=== PATIENT | male | born 1985 | race Caucasian/White ===

== ENCOUNTER 2023-03-07 09:18 | Outpatient (CLI) | payer OTHER, SELFPAY ==
[2023-03-07 14:03] LABS: Alanine Aminotransferase 40 U/L (6-50); Albumin Level 4.7 g/dL (3.5-5.1); Alkaline Phosphatase 80 U/L (38-126); Anion Gap 11 mmol/L (8-16); Aspartate Amino Transferase 57 U/L (17-59); Bilirubin,Total 0.6 mg/dL (0.2-1.3); Blood Urea Nitrogen 13 mg/dL (9-20); Calcium 9.8 mg/dL (8.4-10.2); Carbon Dioxide 28 mmol/L (22-30); Chloride 102 mmol/L (98-107); Cholesterol 199 mg/dL (0-200); Estimated Glomerular Filt Rate > 60; Glucose 79 mg/dL (65-110); HDL Direct 37 mg/dL; Potassium 4.4 mmol/L (3.4-5.0); Sodium 141 mmol/L (137-145); Triglycerides 152 mg/dL (<150)
[2023-03-07 14:21] LABS: LDL Cholesterol Direct 124 mg/dL
== END 2023-03-07 09:19 | disposition home or self-care (01) ==
LOC: ANHGOSHLAB 09:19
PROVIDERS: PCP Family Medicine; Visit Provider Family Medicine
DX: Z13.220 Encounter for screening for lipoid disorders (principal); I10 Essential (primary) hypertension
CPT/HCPCS: 36415; 80053; 80061

== ENCOUNTER 2023-09-18 08:39 | Emergency (ER) | payer OTHER, SELFPAY ==
--- NOTE | ~2023-09-18 | US_ITS ---
Bilateral shoulder ultrasound Ordering provider: Ladarius Shankar APRN History: . R/O deep space infection/abscess . Comparison: None. FINDINGS/impression: Edematous tissues are noted. Hypoechoic irregular fluid collection is seen in the skin with a tract to the skin surface most likel y a small abscess versus hematoma versus seroma. No deep abscess was demonstrated. Follow-up advised. Reviewed, dictated and finalized at location A.
[2023-09-18 08:46] VITALS: BP 136/98; PULSE 96; RESP 16; TEMP 36.6; O2SAT 100
--- NOTE | 2023-09-18 09:08 | ED.SKABFB ---
HPI - Skin/Abscess/Foreign Bdy General Chief complaint: Skin/Abscess/Foreign Body Stated complaint: abscess on back Time Seen by Provider: 09/18/23 09:07 Source: patient Mode of arrival: ambulatory Limitations: no limitations History of Present Illness HPI narrative: Daljit is a 38-year-old male patient presenting to the emergency room today with complaints of a abscess to his right upper back. He reports he went to [facility] urgent care last night and was prescribed doxycycline and mupirocin. States that the nurse practitioner at that time tried to sachi the abscess and did not get much drainage out. He reports he comes into the emergency room today as he has had some fever, chills, nausea, and vomiting. Has had His 2nd dose of doxycycline and threw it up this morning. He is also concerned that the redness has gotten worse. Related Data Home Medications Medication Instructions Recorded Confirmed doxycycline hyclate 100 mg capsule mg 09/18/23 mupirocin 2 % topical ointment topical 09/18/23 Allergies Allergy/AdvReac Type Severity Reaction Status Date / Time No Known Allergies Allergy Verified 09/18/23 08:40 Review of Systems Review of Systems: Pertinent positives per HPI. Patient denies any rash, headache, visual changes, dizziness, cough, runny nose, sore throat, shortness of breath, chest pain, palpitations, nausea, vomiting, diarrhea, constipation, abdominal pain, or any urinary issues. [facility] Past Medical History Medical History Body mass index [BMI]40.0-44.9, adult Chondromalacia patellae, left knee Morbid obesity with BMI of 40.0-44.9, adult Obstructive sleep apnea of adult Recurrent acute suppurative otitis media without spontaneous rupture of left tympanic membrane Surgical History Surgical History History of tonsillectomy Family History Family History Father Hypertension Social History Social History Smoking status: Never smoker Alcohol intake: never Substance use: never Substance use type: does not use Living arrangements: with family Occupation/Education: occupation Gender identity (if verbalized by the patient): Male Sexual Orientation (if Verbalized by the Patient): Straight or Heterosexual Agree to blood products: Yes Comments At the time of my signature, I reviewed and agree with the nursing past medical, surgical, social, and family history. There is no relevant family history pertinent to the patient complaint. Exam Narrative: General: Well-developed, obese, in no apparent distress Head: Normocephalic, atraumatic. Cardio: Regular rate and rhythm, s1 and s2 normal, no murmur appreciated. Resp: Clear to auscultation bilaterally, no rhonchi, rales, wheezing or rubs. Integumentary: [place], warm, and dry, abscess to the right upper back with redness and erythema going near the axilla, tender to palpation with mild fluctuance. Course Course Emergency Course: Portions of this record may have been created with voice recognition software. Vital Signs Vital signs: Vital Signs Temperature 36.6 C 09/18/23 08:46 Pulse Rate 96 09/18/23 08:46 Respiratory Rate 16 09/18/23 08:46 Blood Pressure 136/98 H 09/18/23 08:46 Pulse Oximetry 100 09/18/23 08:46 Oxygen Delivery Room Air 09/18/23 08:46 Temperature 36.6 C 09/18/23 12:50 Pulse Rate 86 09/18/23 12:50 Respiratory Rate 16 09/18/23 12:50 Blood Pressure 132/84 09/18/23 12:50 Pulse Oximetry 98 09/18/23 12:50 Oxygen Delivery Room Air 09/18/23 08:46 Vital signs reviewed Procedures Abscess I/D back: Date of Incision: 09/18/23 Side (if applicable): right Local Anesthetic: lidocaine 1% and with epi Amount of anesthesia u
[2023-09-18 09:54] LABS: Basophils Absolute Auto 0.1 K/mm3 (0.0-0.1); Basophils Percent Auto 0.2 % (0.2-1.2); Eosinophils Percent Auto 0.2 % (0-4.4); Hematocrit 43.6 % (42.0-52.0); Hemoglobin 14.6 g/dL (14.0-18.0); Immature Granulocyte Absolute 0.13 K/mm3 (0.00-0.031); Immature Granulocyte Percent A 0.6 % (0-0.5); Lymphocytes Absolute Auto 1.08 K/mm3 (0.9-3.2); Lymphocytes Percent Auto 5.4 % (18.3-44.2); Mean Corpuscular HGB Conc 33.5 g/dl (32-36); Mean Corpuscular Volume 92.6 fl (80-100); Monocytes Absolute Auto 2.2 K/mm3 (0.1-0.6); Monocytes Percent Auto 11.1 % (2.6-8.5); Neutrophils Absolute Auto 16.5 K/mm3 (1.3-6.7); Neutrophils Percent Auto 82.5 % (45.5-73.1); Platelet Count Result 230 k/mm3 (150-375); Red Blood Count 4.71 M/mm3 (4.6-6.20); Red Cell Distribution Width 13.2 % (11.5-14.5); White Blood Count 20.1 K/mm3 (4.5-10.0)
[2023-09-18 10:03] LABS: Alanine Aminotransferase 28 U/L (6-50); Albumin Level 4.4 g/dL (3.5-5.1); Alkaline Phosphatase 65 U/L (38-126); Anion Gap 10 mmol/L (4-12); Aspartate Amino Transferase 22 U/L (17-59); Bilirubin,Total 1.3 mg/dL (0.2-1.3); Blood Urea Nitrogen 11 mg/dL (9-20); Carbon Dioxide 23 mmol/L (22-30); Chloride 101 mmol/L (98-107); Estimated CRCL calculation 135 ml/min; Estimated Glomerular Filt Rate > 60; Glucose 100 mg/dL (65-110); Lactic Acid Reflex 0.6 mmol/L (0.7-2.0); Potassium 3.9 mmol/L (3.4-5.0); Sodium 134 mmol/L (137-145)
[2023-09-18 10:34] VITALS: BP 136/88; PULSE 88; RESP 16; TEMP 36.6; O2SAT 97
[2023-09-18] MEDS: CLINDAMYCIN 600 MG/D5W 50 ML 600 MG/50 ML PIGGYBACK 100 MG IVPB (10:35)
[2023-09-18] MEDS: ACETAMINOPHEN 500 MG TABLET 1000 MG PO (10:38)
[2023-09-18 12:00] VITALS: BP 134/86; PULSE 86; RESP 16; TEMP 36.6; O2SAT 98
[2023-09-18 12:50] VITALS: BP 132/84; PULSE 86; RESP 16; TEMP 36.6; O2SAT 98
--- NOTE | 2023-09-18 13:06 | PC.NURSE ---
ERP bedside I&D with idoform packing
[2023-09-18] MEDS: ONDANSETRON HCL ODT 4 MG TABLET PO (13:12)
== END 2023-09-18 13:24 | disposition home or self-care (01) ==
PROVIDERS: Emergency Provider Nurse Practitioner Family; PCP Family Medicine
DX: L02.212 Cutaneous abscess of back [any part, except buttock and flank] (principal); L03.312 Cellulitis of back [any part except buttock and flank]; E66.01 Morbid (severe) obesity due to excess calories; Z68.39 Body mass index [BMI] 39.0-39.9, adult; G47.33 Obstructive sleep apnea (adult) (pediatric)
CPT/HCPCS: 10061; 36415; 76604; 80053; 83605; 85025; 87040; 87070; 87081; 87181; 87205; 96365; 99284; A9270

== ENCOUNTER 2023-12-15 15:00 | Emergency (ER) | payer OTHER, SELFPAY ==
[2023-12-15] VITALS (7 sets, daily range): BP systolic 117–149; BP diastolic 77–96; PULSE 71–87; RESP 16–20; TEMP 36.7; O2SAT 97–100
--- NOTE | ~2023-12-15 | CT_ITS ---
EXAMINATION: CT brain wo con DATE: 12/15/2023 16:50 INDICATION: vertigo . TECHNIQUE: Computed tomography (CT) of the head was performed without intravenous contrast. The mA wa s adjusted according to patient size. Iterative reconstruction technique was employed. The dose-lengt h product was 605.33 mGy-cm. COMPARISON: None. FINDINGS: No acute intracranial hemorrhage or extra-axial fluid collection. No hydrocephalus, mass, or herniation. No acute ischemic infarct. Unremarkable dural venous sinus attenuation. No acute osseous abnormality. The aerated spaces are clear. IMPRESSION: No acute intracranial process. Reviewed, dictated and finalized at location K. ANALYSIS
--- NOTE | 2023-12-15 15:20 | ED.GENADULT ---
HPI - General Adult General Chief complaint: Dizziness Stated complaint: dizzy Time Seen by Provider: 12/15/23 15:03 History of Present Illness HPI narrative: 38-year-old male present to the emergency department for evaluation for acute onset of vertigo. Patient does have a prior history of vertigo. Patient has been told previously that he does have or left. Patient states he had 2 short episodes of vertigo this morning then while driving had a more prolonged episode of vertigo. Patient denies any recent coughs colds or fevers. Patient does have bilateral tympanostomy tubes. Patient denies any bending over prior to onset of symptoms. Patient denies any associated numbness or weakness. Patient does have sensation of movement, nausea and he is diaphoretic but denies any chest pain. Related Data Home Medications Medication Instructions Recorded Confirmed doxycycline hyclate 100 mg capsule mg 09/18/23 mupirocin 2 % topical ointment topical 09/18/23 Allergies Allergy/AdvReac Type Severity Reaction Status Date / Time No Known Allergies Allergy Verified 09/18/23 08:40 Review of Systems Review of Systems: All systems reviewed & are unremarkable except as noted in HPI and below PMFSH Past Medical History Medical History Body mass index [BMI]40.0-44.9, adult Chondromalacia patellae, left knee Morbid obesity with BMI of 40.0-44.9, adult Obstructive sleep apnea of adult Recurrent acute suppurative otitis media without spontaneous rupture of left tympanic membrane Surgical History Surgical History History of tonsillectomy Family History Family History Father Hypertension Social History Social History Smoking status: Never smoker Alcohol intake: never Substance use: never Substance use type: does not use Living arrangements: with family Occupation/Education: occupation Gender identity (if verbalized by the patient): Male Sexual Orientation (if Verbalized by the Patient): Straight or Heterosexual Agree to blood products: Yes Exam Narrative: APPEARANCE: uncomfortable appearing HEAD: normocephalic, atraumatic. EYES: PERRLA/EOMI, conjunctivae clear. NOSE: Normal no drainage EARS:TMS clear with good light reflex. THROAT: Pharynx clear, no exudate. NECK: Supple. No adenopathy, no masses. RESPIRATORY: Airway patent, respirations nonlabored. Clear to auscultation bilaterally, no rales, rhonchi, wheezing. CARDIOVASCULAR: Regular rate and rhythm without murmurs rubs or gallops. ABDOMINAL: Soft, nontender, nondistended, normal bowel sounds MUSCULOSKELETAL: Moves all extremities. Strength/ROM intact, No edema, No calf tenderness. NEURO: Alert. Cranial nerves II through XII intact. Grossly intact SKIN: Warm, dry. Normal Color Course Vital Signs Vital signs: Vital Signs Temperature 98.0 F 12/15/23 15:06 Pulse Rate 71 12/15/23 15:06 Respiratory Rate 20 12/15/23 15:06 Blood Pressure 149/96 H 12/15/23 15:06 Pulse Oximetry 97 12/15/23 15:06 Oxygen Delivery Room Air 12/15/23 15:06 Temperature 98.0 F 12/15/23 15:06 Pulse Rate 80 12/15/23 18:35 Respiratory Rate 16 12/15/23 18:35 Blood Pressure 120/80 12/15/23 18:35 Pulse Oximetry 99 12/15/23 18:35 Oxygen Delivery Room Air 12/15/23 15:[address] [facility] Narrative Medical decision making narrative: 38-year-old male presents emergency department for evaluation for dizziness symptoms with subsequent nausea and vomiting. Patient did feel improved with treatment of Valium and meclizine. Head CT was negative. At time of re-evaluation patient was improved. Patient and family updated the results of the workup and on the importance of close follow-up. All questions and concerns were addressed. Differential Diagnosis Differential Diagnosis: Vertigo, TIA, CVA, central vertigo Vital Signs Vital Signs: Vital Signs Temperature 98.0 F 12/15/23 15:06 Pulse Rate 71 12/15/23 15:06 Respiratory Rate 20 12/15/23 15:06 Blood Pressure 149/96 H 12/15/23 15:06 Pulse Oximetry 97 12/15/23 15:06 Oxygen Delivery Room Air 12/15/23 15:06 Temperature 98.0 F 12/15/23 15:06 Pulse Rate 80 12/15/23 18:35 Respiratory Rate 16 12/15/23 18:35 Blood Pressure 120/80 12/15/23 18:35 Pulse Oximetry 99 12/15/23 18:35 Oxygen Delivery Room Air 12/15/23 15:06 Lab Data Lab results reviewed: Yes I reviewed the patient's lab results. 12/15/23 15:30 12/15/23 15:30 Labs: Lab Results 12/15/23 12/15/23 Range/Units 15:30 15:30 WBC 10.3 H (4.5-10.0) K/mm3 RBC 5.28 (4.6-6.20) M/mm3 Hgb 16.2 (14.0-18.0) g/dL Hct 48.4 (42.0-52.0) % MCV 91.7 (80-100) fl MCH 30.7 (26-34) pg MCHC 33.5 (32-36) g/dl RDW 12.8 (11.5-14.5) % Plt Count 323 (150-375) k/mm3 MPV 11.0 H (7.4-10.4) fl Immature Gran % (Auto) 0.3 (0-0.5) % Neut % (Auto) 43.8 L (45.5-73.1) % Lymph % (Auto) 43.8 (18.3-44.2) % Dare % (Auto) 9.6 H (2.6-8.5) % Eos % (Auto) 1.8 (0-4.4) % Baso % (Auto) 0.7 (0.2-1.2) % Lymph # (Auto) 4.52 H (0.9-3.2) K/mm3 Dare # (Auto) 1.0 H (0.1-0.6) K/mm3 Eos # (Auto) 0.2 (0-0.3) K/mm3 Baso # (Auto) 0.1 (0.0-0.1) K/mm3 Abs Immat Gran (auto) 0.03 (0.00-0.031) K/mm3 Absolute Neuts (auto) 4.5 (1.3-6.7) K/mm3 Absolute Nucleated RBC 0.000 (0.0-0.012) K/mm3 Nucleated RBC % 0.0 (0.0-0.2) % Sodium 140 (137-145) mmol/L Potassium 3.6 (3.4-5.0) mmol/L Chloride 105 (98-107) mmol/L Carbon Dioxide 23 (22-30) mmol/L Anion Gap 12 (4-12) mmol/L BUN 15 (9-20) mg/dL Creatinine 0.80 (0.7-1.3) mg/dL Estim Creat Clear Calc 152 ml/min Estimated GFR > 60 (59 - ) Glucose 125 H (65-110) mg/dL Calcium 9.5 (8.4-10.2) mg/dL Magnesium 2.2 Cancelled (1.6-2.3) mg/dL Total Bilirubin 0.5 (0.2-1.3) mg/dL AST 33 (17-59) U/L ALT 39 (6-50) U/L Alkaline Phosphatase 49 (38-126) U/L Total Protein 8.0 (6.3-8.2) g/dL Albumin 4.8 (3.5-5.1) g/dL TSH (Reflex) 3.160 (0.465-4.68) uIU/mL Imaging Data Radiologist's impression: Impressions Head CT 12/15/23 16:54 IMPRESSION: No acute intracranial process. Discharge Plan Discharge Clinical Impression: Vertigo Patient Disposition: Home, Self-Care Condition: Stable Instructions: Antibiotic Form, Dizziness (ED) Additional Instructions: Meclizine as needed for vertigo control. Valium as needed for additional her vertigo control. Have close follow-up with primary care physician. If you have any worsening symptoms then please call or return to the emergency department. Prescriptions: New meclizine 25 mg tablet 25 mg PO BID PRN (Reason: dizziness) Qty: 20 0RF diazepam [Valium] 2 mg tablet 2 mg PO BID PRN (Reason: dizziness or vertigo) Qty: 14 0RF No Action doxycycline hyclate 100 mg capsule mupirocin 2 % ointment TOPICAL clindamycin HCl 300 mg capsule 300 mg PO BID 10 Days Qty: 20 0RF cephalexin 500 mg tablet 500 mg PO Q8H 10 Days Qty: 30 0RF amlodipine 5 mg tablet 5 mg PO DAILY Qty: 90 1RF olmesartan 20 mg tablet 20 mg PO DAILY Qty: 90 1RF dextroamphetamine-amphetamine [Adderall XR] 30 mg capsule,extended release 24hr 30 mg PO DAILY Qty: 30 0RF dextroamphetamine-amphetamine [Adderall] 30 mg tablet 30 mg PO DAILY Qty: 30 0RF Rx Instructions: TAKE IN AFTERNOON Follow-up/Referrals: Gregg Ramos, [Primary Care Provider] -
[2023-12-15] MEDS: SODIUM CHLORIDE 0.9% IV 1,000 ML 999 ML IV CONT (15:33)
[2023-12-15] MEDS: ONDANSETRON INJ 4 MG/2 ML VIAL IV PUSH (15:33)
[2023-12-15] MEDS: diazePAM INJ (*CRX) 10 MG/2 ML SYRINGE 5 MG IV PUSH (15:34)
[2023-12-15 15:35] LABS: Basophils Absolute Auto 0.1 K/mm3 (0.0-0.1); Basophils Percent Auto 0.7 % (0.2-1.2); Eosinophils Absolute Auto 0.2 K/mm3 (0-0.3); Eosinophils Percent Auto 1.8 % (0-4.4); Hematocrit 48.4 % (42.0-52.0); Hemoglobin 16.2 g/dL (14.0-18.0); Immature Granulocyte Absolute 0.03 K/mm3 (0.00-0.031); Immature Granulocyte Percent A 0.3 % (0-0.5); Lymphocytes Absolute Auto 4.52 K/mm3 (0.9-3.2); Lymphocytes Percent Auto 43.8 % (18.3-44.2); Mean Corpuscular HGB Conc 33.5 g/dl (32-36); Mean Corpuscular Hemoglobin 30.7 pg (26-34); Mean Corpuscular Volume 91.7 fl (80-100); Monocytes Percent Auto 9.6 % (2.6-8.5); Neutrophils Absolute Auto 4.5 K/mm3 (1.3-6.7); Neutrophils Percent Auto 43.8 % (45.5-73.1); Platelet Count Result 323 k/mm3 (150-375); Red Blood Count 5.28 M/mm3 (4.6-6.20); Red Cell Distribution Width 12.8 % (11.5-14.5); White Blood Count 10.3 K/mm3 (4.5-10.0)
[2023-12-15] MEDS: MECLIZINE HCL 25 MG TABLET PO ×2 (15:36→17:36)
[2023-12-15 16:00] LABS: Alanine Aminotransferase 39 U/L (6-50); Albumin Level 4.8 g/dL (3.5-5.1); Alkaline Phosphatase 49 U/L (38-126); Anion Gap 12 mmol/L (4-12); Aspartate Amino Transferase 33 U/L (17-59); Bilirubin,Total 0.5 mg/dL (0.2-1.3); Blood Urea Nitrogen 15 mg/dL (9-20); Calcium 9.5 mg/dL (8.4-10.2); Carbon Dioxide 23 mmol/L (22-30); Chloride 105 mmol/L (98-107); Estimated CRCL calculation 152 ml/min; Estimated Glomerular Filt Rate > 60; Glucose 125 mg/dL (65-110); Magnesium 2.2 mg/dL (1.6-2.3); Potassium 3.6 mmol/L (3.4-5.0); Sodium 140 mmol/L (137-145)
[2023-12-15] MEDS: ONDANSETRON HCL ODT 4 MG TABLET (18:42)
== END 2023-12-15 18:45 | disposition home or self-care (01) ==
PROVIDERS: Emergency Provider Emergency Medicine; PCP Family Medicine
DX: R42 Dizziness and giddiness (principal); E66.01 Morbid (severe) obesity due to excess calories; Z68.41 Body mass index [BMI] 40.0-44.9, adult; G47.33 Obstructive sleep apnea (adult) (pediatric)
CPT/HCPCS: 36415; 70450; 80053; 83735; 84443; 85025; 96361; 96374; 96375; 96376; 99284; A9270; J2405; J3360; J7030

== ENCOUNTER 2023-12-20 08:08 | Outpatient (CLI) | payer OTHER, SELFPAY | END 2023-12-21 13:43 | disposition home or self-care (01) | PROVIDERS: PCP Family Medicine; Visit Provider Family Medicine | DX: G47.33 Obstructive sleep apnea (adult) (pediatric) (principal) | CPT/HCPCS: 95800 ==

== ENCOUNTER 2024-02-08 15:05 | Outpatient (CLI) | payer OTHER, SELFPAY ==
--- NOTE | ~2024-02-08 | XR_ITS ---
XR cervical spine 4-5V Ordering provider: Gregg Ramos DO History: . M54.2 - Cervicalgia . Comparison: None. FINDINGS: VERTEBRAL BODIES: Normal height and alignment. No visible fracture or subluxation. The dens is intact . DISK SPACES: Well maintained. Intervertebral foramen are normal. PARASPINOUS SOFT TISSUES: No prevertebral soft tissue swelling. IMPRESSION: No acute osseous abnormality cervical spine. Reviewed, dictated and finalized at location A. F SORTER
--- NOTE | ~2024-02-08 | XR_ITS ---
XR shoulder RT min 2V Ordering provider: Gregg Ramos DO History: . M25.511 - Pain in right shoulder . Comparison: None. FINDINGS: BONES: No acute fracture or dislocation. JOINT SPACES: The acromioclavicular joint is normal. The glenohumeral joint is normal. SOFT TISSUES: Normal. IMPRESSION: No acute osseous abnormality right shoulder. Reviewed, dictated and finalized at location A. CONSULTANT
== END 2024-02-08 15:06 | disposition home or self-care (01) ==
PROVIDERS: PCP Family Medicine; Visit Provider Family Medicine
DX: M54.2 Cervicalgia (principal); M25.511 Pain in right shoulder
CPT/HCPCS: 72050; 73030

== ENCOUNTER 2024-02-13 07:59 | Outpatient (CLI) | payer OTHER, SELFPAY ==
--- OUTSIDE RECORDS SUMMARY | 2024-02-20 10:03 | XMS_ITS | Referral Summary ---
Author Organization [facility] [address] Address [address] [place] [id number] Care Team Providers Care Carpenter Supervisor [employer]en [employer] Name Role Phone Gregg Ramos DO Primary Care Provider [phone] Allergies No known active allergies Medications dextroamphetami ne-amphetamine XR (ADDERALL XR) 30 mg 24 hr capsule Take 1 capsule (30 mg total) by mouth daily 09/17/2023 Active amLODIPine (NORVASC) 5 mg tablet Take 1 tablet (5 mg total) by mouth daily 03/26/2023 Active losartan-hydroC HLOROthiazide (HYZAAR) 50-12.5 mg per tablet Take 1 tablet by mouth daily 09/22/2021 Active Active Problems No known active problems Social History Tobacco Use Types Packs/Day Years Used Date Smoking Tobacco: Never Assessed Sex and Gender Information Value Date Recorded Sex Assigned at Not on file Legal Sex Male 5:45 PM CDT Gender Identity Not on file Sexual Orientation Not on file Last Filed Vital Signs Vital Sign Reading Time Taken Comments Blood Pressure 118/72 09/17/2023 6:24 PM CDT Pulse 112 09/17/2023 6:24 PM CDT Temperature 37.4 ??C (99.4 ??F) 09/17/2023 6:24 PM CD T Respiratory Rate 22 09/17/2023 6:24 PM CDT Oxygen Saturation 98% 09/17/2023 6:24 PM CDT Inhaled Oxygen Concentration - - Weight 129.3 kg (285 lb) 09/17/2023 6:24 PM CDT Height 180.3 cm (5' 11 ) 09/17/2023 6:24 PM CDT Body Mass Index 39.75 09/17/2023 6:24 PM CDT Plan of Treatment Not on file Additional Health Concerns Infection Onset Date Last Indicated MRSA Comment:Back abscess 09/17/2023 09/17/2023 09/17/2023 Insurance [facility] [employer] Care Teams Carpenter Supervisor [employer]en [employer] Relationship Specialty Start Date End Date Gregg Ramos DO [address] [place] [id number] PCP - General Family Medicine 09/17/23
--- OUTSIDE RECORDS SUMMARY | 2024-02-20 10:03 | XMS_ITS | Encounter Summary ---
Author Organization [facility] Healthcare Address [address] [place] [id number] Care Team Providers Care Occupational Therapy Teacher Name Role Phone Gregg Ramos DO Primary Care Provider [phone] Encounter Details Date Type Department Care Team (Latest Contact Info) Description 09/17/2023 6:52 PM CDT - 09/17/2023 11:59 PM CDT Hospital Encounter [address] [id number] Abscess Discharge Disposition: Discharge to home or self care Social History Tobacco Use Types Packs/Day Years Used Date Smoking Tobacco: Never Assessed Sex and Gender Information Value Date Recorded Sex Assigned at Not on file Legal Sex Male 5:45 PM CDT Gender Identity Not on file Sexual Orientation Not on file documented as of this encounter Medications at Time of Discharge amLODIPine (NORVASC) 5 mg tablet Take 1 tablet (5 mg total) by mouth daily 03/26/2023 dextroamphetamin e-amphetamine XR (ADDERALL XR) 30 mg 24 hr capsule Take 1 capsule (30 mg total) by mouth daily 09/17/2023 losartan-hydroCH LOROthiazide (HYZAAR) 50-12.5 mg per tablet Take 1 tablet by mouth daily 09/22/2021 doxycycline (VIBRAMYCIN) 100 mg capsuleIndicatio ns:Abscess Take 1 tablet/capsule (100 mg total) by mouth 2 (two) times a day for 7 days 14 tablet/capsule 09/17/2023 4 mupirocin (BACTROBAN) 2 % ointmentIndicati ons:Abscess Apply topically 3 (three) times a day for 10 days 22 g 09/17/2023 4 documented as of this encounter Discharge Disposition Disposition Code Departure Means Destination Discharge to home or self care documented in this encounter Plan of Treatment Not on file documented as of this encounter Procedures Procedure Name Priority Date/Time Associated Diagnosis Comments AEROBIC AND ANAEROBIC CULTURE AND GRAM STAIN Routine 09/17/2023 6:52 PM CDT Abscess documented in this encounter Results * (ABNORMAL) Aerobic and anaerobic culture and gram stain Abscess Back, lower (09/17/2023 6:52 PM CDT) Direct Specimen Exam Stain: Moderate polymorphonuclear leukocytes seen. Few Gram Positive Cocci Comment:Testing performed by : , [address] [place]., [address] Report Final Report: Few Staphylococcus aureus Methicillin resistant (MRSA) by penicillin binding protein 2a (PBP2a) testing. (.) MERT Comment:Testing performed by : , [address] [place]., [address] Organism STAPHYLOCOCCUS AUREUS MERT Abscess (Back, lower) 09/17/2023 6:52 PM CDT 09/18/2023 4:39 AM CDT Narrative MERT - 09/25/2023 1:57 PM CDT Specimen received on an ESwab. Testing performed by Microbiology Laboratory ([phone]) Specimens submitted from normally sterile body sites will have all bacterial morphotypes identified. Specimens that contain grossly mixed shivani and/or are from body sites that are not normally sterile will be examined for Staphylococcus aureus, Pseudomonas aeruginosa, beta-hemolytic strep, vancomycin-resistant Enterococcus, Bacteroides, Parabacteroides, Clostridium perfringens and fungus. If any of these are isolated, the organism will be reported. Current interpretive data was last revised on 2019. Organism Antibiotic Method Susceptibility Staphylococcus aureus Vancomycin INTERPRETATION Susceptible Staphylococcus aureus Ceftaroline INTERPRETATION Susceptible Staphylococcus aureus Trimethoprim with Sulfamethoxazole INTERPRETATION Susceptible Staphylococcus aureus Linezolid INTERPRETATION Susceptible Staphylococcus aureus Doxycycline INTERPRETATION Susceptible Staphylococcus aureus Clindamycin INTERPRETATION Susceptible Staphylococcus aureus Erythromycin INTERPRETATION Resistant Staphylococcus aureus Oxacillin INTERPRETATION Resistant Staphylococcus aureus Cefazolin INTERPRETATION Resistant Staphylococcus aureus Ceftriaxone INTERPRETATION Resistant us Murtaza Lizama NP LAB MICROBIOLOGY - GENERAL ORDShana RODRIGUEZ Final Result [facility] [id number] [address] Department [place] [address] documented in this encounter Visit Diagnoses Diagnosis Abscess Cellulitis and abscess of unspecified site documented in this encounter Care Teams Occupational Therapy Teacher Relationship Specialty Start Date End Date Gregg Ramos DO [address] [facility] [place] [address] [phone] PCP - General Family Medicine 09/17/23 documented as of this encounter
--- OUTSIDE RECORDS SUMMARY | 2024-02-20 10:03 | XMS_ITS | Encounter Summary ---
Author Organization [facility] Healthcare Address [address] [place] [id number] Care Team Providers Care [employer] Name Role Phone Gregg Ramos DO Primary Care Provider [phone] Reason for Referral * Procedure (Routine) - Pending Review Specialty Diagnoses / Procedures [facility] Referred To Contact Diagnoses Abscess Procedures Incision and Drainage Murtaza Lizama NP [address] [address] Phone: tel: fax: [facility] Medical Group Referral ID Status Reason Start Date Expiration Date V isits Requested Visits Authorized [id number] Pending Review 09/17/2023 10/16/2024 1 1 Reason for Visit * Reason Comments Abscess Abscess on back righ t shoulder blade area Encounter Details Date Type Department Care Team (Late st Contact Info) Description 09/17/2023 7:00 PM CDT Office Visit [facility] Medical [facility] [address] [id number] Murtaza Lizama NP [address] [place] [address] Abscess (Primary Dx); Tachycardia Social History Tobacco Use Types Packs/Day Years Used Date Smoking Tobacco: Never Assessed Sex and Gender Information Value Date Recorded Sex Assigned at Not on file Legal Sex Male 5:45 PM CDT Gender Identity Not on file Sexual Orientation Not on file documented as of this encounter Last Filed Vital Signs Vital Sign Reading [...] Mass Index 39.75 09/17/2023 6:24 PM CDT documented in this encounter Patient Instructions * Patient Instructions* Murtaza Lizama NP - 09/17/2023 7:00 PM CDT Close monitoring over the next 12-24 hours, and Low threshold for re-evaluation in ED with any new or worsening symptoms. * Attachments The following attachments cannot be sent through Care Everywhere. * Warm Compress or Soak (AfterCare(R) Instructions(ER/ED)) ([place]) * Abscess (AfterCare(R) Instructions(ER/ED)) ([place]) documented in this encounter Ordered Prescriptions Prescription Sig Dispense Quantity Refills Last Filled Start Date End Date mupirocin (BACTROBAN) 2 % ointmentIndication s:Abscess Apply topically 3 (three) times a day for 10 days 22 g 09/17/2023 4 doxycycline (VIBRAMYCIN) 100 mg capsuleIndications :Abscess Take 1 tablet/capsule (100 mg total) by mouth 2 (two) times a day for 7 days 14 tablet/capsule 09/17/2023 4 documented in this encounter Progress Notes * Murtaza Lizama NP - 09/17/2023 7:00 PM CDTAssociated Order(s): Incision and Drainage Post-Procedure Diagnose(s): Abscess Images from the original note were not included. Subjective/Objective Patient ID: Daljit Hernandez is a 38 y.o. male. Chief Complaint Abscess (Abscess on back right shoulder blade area /) Patient [facility] with abscess to right upper back. Patient states symptoms started couple days ago and have been rapidly worsening. Today he did warm compress x1. Patient states hehad abscess to buttocks couple years ago with similar symptoms states he began to run a fever and had body aches chills went to urgent care they started him on oral antibiotics, he went home and began to worsen return the next day and they performed incision and drainage, and symptoms resolved. Patient states he does not know if it was MRSA at that time. Review of Systems Constitutional: Positive for chills and diaphoresis. Negative for appetite change, fatigue and fever. HENT: Negative for sore throat and trouble swallowing. Respiratory: Negative for cough, shortness of breath and wheezing. Cardiovascular: Negative for chest pain and palpitations. Gastrointestinal: Negative for diarrhea, nausea and vomiting. Skin: Positive for wound. Allergic/Immunologic: Negative for environmental allergies and food allergies. Neurological: Negative for headaches. Psychiatric/Behavioral: Negative for behavioral problems. Physical Exam Vitals and nursing note reviewed. Exam conducted with a rn progressive care present (Marti Yuan MA). Constitutional: General: He is not in acute distress. Appearance: Normal appearance. He is not ill-appearing. HENT: Head: Normocephalic and atraumatic. Cardiovascular: Rate and Rhythm: Regular rhythm. Tachycardia present. Pulses: Normal pulses. Pulmonary: Effort: Pulmonary effort is normal. Skin: General: Skin is warm and dry. Capillary Refill: Capillary refill takes less than 2 seconds. Comments: Minimal fluctuance On an erythemic and indurated base extending from area of fluctuance No active drainage noted. Sensation intact. Tenderness noted with palpation. Neurological: Mental Status: He is alert and oriented to person, place, and time. Incision and Drainage Performed by: Murtaza Lizama NP Authorized by: Murtaza Lizama NP Consent Given by: Patient Timeout: prior to procedure the correct patient, procedure, and site was verified Verbal consent obtained: Yes Risks, alternatives, and patient questions discussed: Yes Type: Abscess Body area: Trunk Location details: Back Medications: 2 mL lidocaine-EPINEPHrine 1 %-1:100,000 Scalpel size: 11 Incision type: Single straight Incision depth: Subcutaneous Complexity: Simple Drainage: Purulent Drainage amount: Scant Wound treatment: Wound left open Patient tolerance: Patient tolerated the procedure well with no immediate complications Vitals: 09/17/23 1824 BP: 118/72 Pulse: 112 Resp: 22 Temp: 37.4 ??C (99.4 ??F) TempSrc: Oral SpO2: 98% Weight: 129.3 kg (285 lb) Height: 180.3 cm (5' 11 ) No results found. No past medical history on file. There is no problem list on file for this patient. Current Outpatient Medications: amLODIPine (NORVASC) 5 mg tablet, Take 1 tablet (5 mg total) by mouth daily, Disp: , Rfl: dextroamphetamine-amphetamine XR (ADDERALL XR) 30 mg 24 hr capsule, Take 1 capsule (30 mg total) bymouth daily, Disp: , Rfl: losartan-hydroCHLOROthiazide (HYZAAR) 50-12.5 mg per tablet, Take 1 tablet by mouth daily, Disp: , Rfl: doxycycline (VIBRAMYCIN) 100 mg capsule, Take 1 tablet/capsule (100 mg total) by mouth 2 (two) times a day for 7 days, Disp: 14 tablet/capsule, Rfl: 0 mupirocin (BACTROBAN) 2 % ointment, Apply topically 3 (three) times a day for 10 days, Disp: 22 g, Rfl: 0 No Known Allergies Social History Tobacco Use Smoking status: Not on file Smokeless tobacco: Not on file Substance and Sexual Activity Drug use: Not on file Sexual activity: Not on file Alcohol Use: Not on file No past surgical history on file. Assessment/Plan Diagnoses and all orders for this visit: Abscess (Primary) Comments: Back Orders: - doxycycline (VIBRAMYCIN) 100 mg capsule; Take 1 tablet/capsule (100 mg total) by mouth 2 (two) times a day for 7 days - mupirocin (BACTROBAN) 2 % ointment; Apply topically 3 (three) times a day for 10 days - Aerobic and anaerobic culture and gram stain Abscess Back, lower; Future - Incision and Drainage Tachycardia -discussed in detail with patient my concern for SIRS, he has temp of 99.4F, tachycardia, and abscess. Discussed with patient that my recommendation would be he go to the ER, for workup for SIRS. Patient states he would like to try incision and drainage in clinic and start on oral antibiotics. States he will go to ER if no improvement in the next 12-24 hour or any worsening of symptoms. After discussion with patient, shared decision-making and advised patient we can perform incision and drainage in clinic, with low threshold for re-evaluation with any new, worsening or persistent symptoms. Patient states understanding and agrees to plan of care. -warm moist compresses at least 4 times daily -start doxycycline and mupirocin Patient Education: Keep area clean and dry. Wash with soap and water daily Seek immediate medical attention for fever, increased redness, increased pain, increased swelling, a red line from wound, chills, nausea and/or vomiting. As this may indicate worsening of the infection. Return to the [facility] or your Primary Care Physician if the red border around the infection area is increasing and/or if symptoms are not improving in 24-48 hours. Doxycycline should be taken with at least 240 mL (8 oz) of water to minimize the risk of the tabletgetting stuck in the esophagus and causing local erosions. Patients should stand or sit upright for at least 30 minutes and should eat a meal after taking medication. You can get a sunburn more easily while taking doxycycline. Wear sunscreen when out side, hat etc, to protect against sunburn Disposition Treatment plan including expectations, follow up, and return precautions discussed with patient/parent, verbalizes understanding. Medication dosage, use, and potential adverse reactions discussed with patient/parent. Advised to follow up with PCP if symptoms do not resolve as expected or sooner if condition worsens. Signs/symptoms warranting ER evaluation reviewed. Patient and/or guardian was given an opportunity to ask questions, questions answered. Murtaza Lizama NP This office note has been partially dictated using TUBE software, and as a result portions of the record may have been created with this software. Occasional wrong-word or '[id number]' substitutions may have occurred due to the inherent limitations of voice recognition software. Read the chartcarefully and recognize, using context, where substitutions have occurred. Cosigned by Matt Johnson MD at 09/17/2023 11:41 PM CDT documented in this encounter Plan of Treatment Not on file documented as of this encounter Procedures Procedure Name Priority Date/Time Associated Diagnosis Comments MA INCISION & DRAINAGE ABSCESS SIMPLE/SINGLE Routine 09/17/2023 7:00 PM CDT Abscess documented in this encounter Results * MA INCISION & DRAINAGE ABSCESS SIMPLE/SINGLE (09/17/2023 7:00 PM CDT) Narrative Matt Johnson MD - 09/17/2023 7:00 PM CDT Murtaza Lizama NP ? 09/17/2023 ??7:05 PM Incision and Drainage Performed by: Murtaza Lizama NP Authorized by: Murtaza Lizama NP ?? Consent Given by: ??Patient Timeout: prior to procedure the correct patient, procedure, and site was verified ?? Verbal consent obtained: Yes ?? Risks, alternatives, and patient questions discussed: Yes ?? Type: ??Abscess Body area: ??Trunk Location details: ??Back Medications: ??2 mL lidocaine-EPINEPHrine 1 %-1:100,000 Scalpel size: ??11 Incision type: ??Single straight Incision depth: ??Subcutaneous Complexity: ??Simple Drainage: ??Purulent Drainage amount: ??Scant Wound treatment: ??Wound left open Patient tolerance: ??Patient tolerated the procedure well with no immediate complications Murtaza Lizama NP IN CLINIC/BEDSIDE ORDERABLES Fi nal Result * (ABNORMAL) Aerobic and anaerobic culture and gram stain Abscess Back, lower (09/17/2023 6:52 PM CDT) Direct Specimen Exam Stain: Moderate polymorphonuclear leukocytes seen. Few Gram Positive Cocci Comment:Testing performed by : [facility], [address] [place]., [address] Report Final Report: Few Staphylococcus aureus Methicillin resistant (MRSA) by penicillin binding protein 2a (PBP2a) testing. (.) MERT RHODES Comment:Testing performed by : [facility], [address] [facility] [place]., [address] Organism STAPHYLOCOCCUS AUREUS MERT Abscess (Back, lower) 09/17/2023 6:52 PM CDT 09/18/2023 4:39 AM CDT Narrative MERT RHODES - 09/25/2023 1:57 PM CDT Specimen received on an ESwab. Testing performed by [facility] Microbiology Laboratory ([phone]) Specimens submitted from normally sterile body sites [...] INTERPRETATION Resistant Staphylococcus aureus Ceftriaxone INTERPRETATION Resistant Murtaza Lizama NP [facility] Final Result MERT [id number] [address] Department [place] [address] documented in this encounter Visit Diagnoses Diagnosis Abscess- Primary Cellulitis and abscess of unspecified site Tachycardia Unspecified tachycardia Abscess Cellulitis and abscess of unspecified site documented in this encounter Administered Medications Inactive Administered Medications - up to 3 most recent administrations Medication Order MAR Action Action Date Dose Rate Site lidocaine-EPINEPHrine (XYLOCAINE with EPI) 1 %-1:100,000 injection 2 mL 2 mL, One-Time Injection, Starting on 09/17/23 at 1900, For 1 dose, Indications: Administration of Local AnesthesiaIndications:Administration of Local Anesthesia Given 09/17/2023 7:00 PM CDT 2 mL documented in this encounter Historical Medications * This list may reflect changes made after this encounter. losartan-hydroCHL OROthiazide (HYZAAR) 50-12.5 mg per tablet Take 1 tablet by mouth daily 09/22/2021 amLODIPine (NORVASC) 5 mg tablet Take 1 tablet (5 mg total) by mouth daily 03/26/2023 dextroamphetamine -amphetamine XR (ADDERALL XR) 30 mg 24 hr capsule Take 1 capsule (30 mg total) by mouth daily 09/17/2023 added in this encounter Care Teams [employer] Relationship Specialty Start Date End Date Gregg Ramos DO [facility] [facility] [address] [place] [id number] PCP - General Family Medicine 09/17/23 documented as of this encounter
--- OUTSIDE RECORDS SUMMARY | 2024-02-20 10:03 | XMS_ITS | Clinical Summary ---
Author Organization [facility] [address] Address [address] [place] [id number] Care Team Providers Care Labor Custodian Name Role Phone Gregg Ramos DO Primary Care Provider [phone] Allergies No known active allergies Medications dextroamphetami [...] on file Sexual Orientation Not on file Obstetrics History Last Filed Vital Signs Vital Sign Reading [...] 09/17/2023 6:24 PM CDT Plan of Treatment Health Maintenance Due Date Last Done Comments Depression Screening 1986 Hepatitis C Screening 1986 Varicella Vaccines (1 of 2 - 13+ 2-dose series) 08/14/1999 Hepatitis B Screening 2004 Regular Well Visit/Exam 18-64 2004 Covid-19 Vaccine (3 - 2023-2 5 season) 2023 05/27/2020, 04/29/2020 Influenza Vaccine (#1) 2023 0, 10/10/2016 DTaP/Tdap/Td Vaccine (2 - Td or Tdap) 10/02/2026 10/02/2016, 03/27/2002 HPV Vaccines Aged Out No longer eligi ble based on patient's age to complete this topic Pneumococcal vaccine <65 Aged Out No longer eligible based on patient's age to complete this topic Additional Health Concerns Infection Onset Date Last Indicated MRSA Comment:Back abscess 09/17/2023 09/17/2023 09/17/2023 Insurance [facility] CHOICE [facility] H[facility]/PPO Address: [facility] [address] [place] [address] Care Teams Labor Custodian Relationship Specialty Start Date End Date Gregg Ramos DO [address] [facility] [address] [place] [id number] PCP - General Family Medicine 09/17/23
[2024-03-06 10:55] VITALS: BMI 40.4
--- NOTE | 2024-03-06 10:55 | P.SLEEP_ITS ---
Sleep Study Date of Study: 02/13/24 Ordering Provider: Gregg Ramos, DO Interpreting Physician: Ariane Hastings MD Sleep Study Type: BiPAP Titration Height: 1.8 m Weight: 131.542 kg Body Mass Index: 40.4 Neck Circumference (inches): 20 [place]: 9 Reason for Sleep Study Known obstructive sleep apnea, poor response to current settings * 12/20/2023 Home sleep test using WatchPat; severe CHELO with moderate central sleep apnea. AHI 62.5, central AHI 16.9 with Jace-Kiryb respirations 16.6% of the night, desaturation to 64%,31.5 minutes, 8.5% the night spent below 88%. He is currently using a device which does not seem effective. His primary care office note indicates that he may be on APAP which can make central sleep apnea worse. * 05/22/2015; BMI 42. Home sleep test using Snap = overall AHI 38.8, central- AHI 0.9, lowest saturation 77%, moderate snoring;, 18 minutes or 7% of the home sleep test spent below 88% saturation. Mean saturation 92%. Sleep History History is taken from his Dec 19 home sleep report. Daljit Hernandez is a 38-year-old man with severe obstructive sleep apnea diagnosed in 2015 with an apnea hypopnea index 38.3 with desaturation to 77%. His current machine no longer provides effective treatment. His medical comorbidities includes hypertension and ADHD, no heart disease or atrial fibrillation. He complains of loud snoring, excessive daytime sleepiness and witnessed apneas. He chokes and gasps at night, he has difficulty breathing while he sleeps on his back and he has morning headaches. He wakes with a dry mouth. He does not have nocturnal heartburn and he does not wake to go to the bathroom. He does not have difficulty falling asleep, does not have difficulty staying asleep. He does not use any sedatives. He does not feel anxious about his sleep. He does not have muscle weakness with strong emotion. He does not feel paralyzed on waking or falling asleep. He does not dream during daytime naps knee does not have vivid dreamlike scenes upon awakening or falling asleep. He does not grind his teeth at night or clinches jaws. He does not have uncomfortable feelings in his legs before bed and does not kick during sleep. He does feel excessively tired and sleepy during the day, he never awakens feeling refreshed and he frequently has an urge to fall asleep during the day. He feels drowsy while driving. His usual bedtime is 11:00 p.m. falling asleep within 15 minutes spending 7 hours in bed, 6-1/2 hours of sleep. On weekends he goes to bed 1 hour later, spent 6 hours in bed. He a never awakens feeling refreshed. He does not take naps. Habits: tobacco: never smoker Caffeine: 1-2 cups per day Alcohol: no Recreational substances: none PMFSH Past Medical History Medical History Essential (primary) hypertension Body mass index [BMI]40.0-44.9, adult Chondromalacia patellae, left knee Morbid obesity with BMI of 40.0-44.9, adult Obstructive sleep apnea of adult Recurrent acute suppurative otitis media without spontaneous rupture of left tympanic membrane Surgical History Surgical History History of tonsillectomy Family History Family History Father Hypertension Social History Social History Smoking status: Never smoker Alcohol intake: never Substance use: never Substance use type: does not use Living arrangements: with family Occupation/Education: occupation Gender identity (if verbalized by the patient): Male Sexual Orientation (if Verbalized by the Patient): Straight or Heterosexual Agree to blood products: Yes Medications Home Medications ?Medication ?Instructions ?Recorded ?Confirmed ?Type mupirocin 2 % topical ointment topical 09/18/23 02/07/24 History amlodipine 5 mg tablet 5 mg PO DAILY #90 tabs 10/09/23 02/07/24 Rx olmesartan 20 mg tablet 20 mg PO DAILY #90 tabs 10/09/23 02/07/24 Rx diazepam 2 mg tablet (Valium) 2 mg PO BID PRN dizziness or 12/15/23 02/07/24 Rx vertigo #14 tabs meclizine 25 mg tablet 25 mg PO BID PRN dizziness #20 tabs 12/15/23 02/07/24 Rx zolpidem 10 mg tablet 10 mg PO QHS PRN insomnia #1 tablet 12/31/23 02/07/24 Rx dextroamphetamine-amphetamine 30 30 mg PO DAILY #30 tabs 02/14/24 Rx mg tablet (Adderall) dextroamphetamine-amphetamine ER 30 mg PO DAILY #30 caps 02/14/24 Rx 30 mg 24hr capsule,extend release (Adderall XR) Sleep Procedure A full CPAP polysomnogram using the [employer] multi-channel system recorded the standard physiologic parameters including EEG, EOG, submentalis EMG, anterior tibialis EMG, EKG, body position, nasal and oral airflow using nasal pressure sensor and thermistor. Respiratory parameters of chest and abdominal movements were recorded with Respiratory Inductance Plethysmography belts. Oxygen saturation was recorded by pulse oximetry. Video monitoring was also performed. Sleep stages, periodic limb movements, and EEG arousals were scored in 30 second epochs according to the criteria of the AASM Scoring Manual. The Apnea-Hypopnea Index was calculated using CMS guidelines for definition of hypopnea while scoring respiratory events. The patient self-administered zolpidem 10 mg at the beginning of the study. He started the study wearing a medium ResMed AirFit F20 fullface mask and heated humidity, initial pressure was CPAP 5 cm, increased to 7 cm, 9 cm, 11 cm, 12 cm, 14 cm, 16 cm, 18 cm, 19 cm, transition to BiPAP 20/16 due to ongoing hypopneas during REM, final pressure was 21/17. On bilevel 20/16, the patient spent 57.5 minutes in bed, no time awake, 2.5 minutes in non-REM and 55 minutes in REM. Sleep efficiency was 100%. The residual apnea-hypopnea index was 5.2 using a 4% criteria, lowest saturation 93%. Patient had consolidated REM in the right lateral position. This is the optimal pressure. Sleep Architecture The total recording time was 515.1 minutes. The total sleep time was 436.0 minutes. Sleep latency was 4.5 minutes. REM latency was 114.5 minutes. Sleep efficiency was 84.6%. The patient had 51 awakenings for an awakening index of 7.0. Wake after Sleep Onset time was 75.0 minutes. The patient spent 49.5 minutes, 11.4% of total sleep time in Stage N1. The patient spent 215.0 minutes, 49.3% in Stage N2. The patient spent 50.5 minutes, 11.6% in Stage N3. The patient spent 121.0 minutes, 27.8% in Stage REM. Respiratory Analysis The patient had 64 hypopneas, 30 obstructive apneas, no mixed apneas, and 5 central apneas for an overall Apnea Hypopnea Index of 13.6 events per hour. The REM Apnea Hypopnea Index was 8.4. The NREM Apnea Hypopnea Index was 15.6. The patient had a Central Apnea Hypopnea Index of 0.7. There were no Respiratory Effort Related Arousals. The Respiratory Disturbance Index is 17.5 events per hour. There was no evidence of Jace-Kirby Respirations. Arousals There were 110 total arousals for an arousal index of 15.1. There were 34 spontaneous arousals for an index of 4.7. There were 50 arousals due to respiratory events for an index of 6.9. There were 4 arousals due to periodic limb movements for an index of 0.6. There were 22 arousals due to isolated limb movements for an index of 3.0. Periodic Limb Movements The patient had 36 isolated limb movements with an index of 5.0. The patient had 6 periodic limb movements with index of 0.8. Patient had a total of 42 limb movements with a total limb movement index of 5.8. Oximetry Data The patient had an average oxygen saturation of 95.1% in sleep with a minimum oxygen saturation of 65% and a maximum oxygen saturation of 99%. The patient had 109 oxygen desaturations that were 4% or greater resulting in an Oxygen Desaturation Index of 15.0. The patient spent 9 minutes, 1.8%of total sleep time with an oxygen saturation below 88%. Snoring Profile Snoring was moderate to loud, controlled at the optimal pressure. Cardiac Profile The EKG showed normal sinus rhythm. The patient had an average pulse rate of 76.5 bpm with a minimum pulse rate of 63 bpm and a maximum pulse rate of 111 bpm. EEG Profile EEG was unremarkable, no evidence of seizures. Assessment and Plan Assessment and Plan (1) Obstructive sleep apnea of adult: Code(s): G47.33 - Obstructive sleep apnea (adult) (pediatric) Status: Acute Assessment and Plan: This full night titration on February 13, 2024 shows an excellent titration with a medium ResMed AirFit F20 fullface mask and heated humidity, optimal pressure of BiPAP 20/16, residual apnea-hypopnea index is 5.2, dense REM in the right lateral position and a minimum saturation of 93%. The patient should be prescribed this ResMed equipment as well as tubing, filters and reservoir. This should be used with all episodes of sleep. Compliance should be reviewed within 31-90 days of starting therapy for usage greater than 4 hours per night greater than 70% of the nights. The patient should be asked about symptoms such as excessive daytime sleepiness, quality of sleep, decreased nocturia, increased mental functioning such as memory, mood, and concentration. BI is 40. Weight management is advised. Clinical data suggests that weight loss of 10% can reduce the severity of respiratory events and snoring and improve AHI by as much as 25%. (2) Central sleep apnea with Jace-Kirby respiration: Code(s): R06.3 - Periodic breathing Status: Acute Assessment and Plan: The patient did not have significant central apneas and had no Jace-Kirby respirations during the study. This new pressure eliminated these problems. Data The data obtained during this sleep study is adequate for interpretation. Certification This sleep study has been reviewed by a board certified sleep medicine physician.
== END 2024-02-14 07:21 | disposition home or self-care (01) ==
LOC: ANHCSM 08:00
PROVIDERS: PCP Family Medicine; Visit Provider Family Medicine
DX: G47.33 Obstructive sleep apnea (adult) (pediatric) (principal); R06.3 Periodic breathing; Z68.41 Body mass index [BMI] 40.0-44.9, adult
CPT/HCPCS: 95811